=== PATIENT | female | born 1985 | race Caucasian/White ===

== ENCOUNTER 2016-09-18 | Emergency (ER) | payer OTHER ==
[2016-09-18 00:48] LABS: Urine Bacteria Absent (Absent); Urine Bilirubin Negative (Negative); Urine Glucose 2+(150 mg/dL) (Negative); Urine Nitrite Negative (Negative)
[2016-09-18] MEDS ORDERED: Ketorolac INJ* 30 MG/ML 1 ML VIAL IV ONE (01:09)
[2016-09-18] MEDS ORDERED: NS 0.9% 1000 ML* 1,000 ML IV ONE (01:09)
[2016-09-18] MEDS ORDERED: Ondansetron INJ* 2 MG/ML VIAL IV ONE (01:09)
[2016-09-18 01:38] LABS: Manual Entry Verification CAR0052; UR Preg Internal Control QC Line Present; UR Preg Kit Lot# 6030156
--- NOTE | 2016-09-18 01:45 | ED ---
GI/ HPI - HPI Summary HPI Summary: 30 female presents with complaints of blood in urine, burning and urgency that began approximately 2 hours prior to arrival, suddenly. Patient has never had these symptoms before. Has had previous UTI infections. Denies vaginal discharge or complaints. Normal bowel movements without blood, diarrhea and constipation. States she thinks this is a bladder or kidney infection. States she has had lower abdominal discomfort that began also 2 hours ago that she describes as cramping and movement makes it feel better. Admits to lower right back pain that has been dull and ongoing over the past 2 days. Patient denies known fever/chills. She admits to nausea and feeling sweaty, however relates it to feeling as though she is working herself up. No PMHx. No surgeries. Same sex partner. Denies and vomiting. - History of Current Complaint Chief Complaint: EDUrogenitalProblems Stated Complaint: BLOOD IN URINE Hx Obtained From: Patient Onset/Duration: Started Hours Ago - 2, Still Present, Worse Since Timing: Constant Severity: Moderate Current Severity: Moderate Vaginal Bleeding Description: Bright Red Pain Intensity: 8 Location of Pain: Suprapubic Pain Characteristics: Sharp, Cramping, Aching, Unable to describe Associated Signs and Symptoms: Positive: Nausea, Hematuria, Dysuria, Flank Pain , Chills, UTI Symptoms. Negative: Vomiting, Constipation, Blood w/Stool, Diarrhea, Fever, Dyspureunia, New Sexual Partner Additional Signs & Symptoms: Positive: Menses Regular. Negative: Vaginal Bleeding, Vaginal Discharge, Positive Test Aggravating Factor(s): Urination Alleviating Factor(s): Movement - Allergy/Home Medications Allergies/Adverse Reactions: Allergies Allergy/AdvReac Type Severity Reaction Status Date / Time No Known Allergies Allergy Verified 09/18/16 01:48 PMH/Surg Hx/FS Hx/Imm Hx Endocrine/Hematology History: Reports: Hx Anemia Denies: Hx Diabetes Respiratory History: Denies: Hx Asthma - Surgical History Surgery Procedure, Year, and Place: none - Immunization History Immunizations Up to Date: Yes Infectious Disease History: Denies: Traveled Outside the [place] in Last 30 Days - Family History Known Family History: Positive: None - Social History Alcohol Use: Daily Substance Use Type: Reports: None Smoking Status (MU): Never Smoked Tobacco Review of Systems Positive: Chills Cardiovascular: Negative Respiratory: Negative Positive: Abdominal Pain - suprapubic, Nausea Positive: burning, frequency, flank pain, hematuria, urgency Musculoskeletal: Negative Skin: Negative Neurological: Negative All Other Systems Reviewed And Are Negative: Yes Physical Exam Triage Information Reviewed: Yes Vital Signs On Initial Exam: Initial Vitals Temp Pulse Resp BP Pulse Ox 98 F 110 22 127/79 100 09/18/16 00:05 09/18/16 00:05 09/18/16 00:05 09/18/16 00:05 09/18/16 00:05 tachycardia noted. patient is anxious and in moderate amount of pain, unable to sit still. Vital Signs Reviewed: Yes Appearance: Positive: Well-Appearing, Pain Distress - moderate, squirming around stretcher, unable to sit still. Skin: Positive: Warm, Skin Color Reflects Adequate Perfusion, Dry Head/Face: Positive: Normal Head/Face Inspection Eyes: Positive: Normal, Conjunctiva Clear ENT: Positive: Normal ENT inspection, Hearing grossly normal Neck: Positive: Supple, Nontender Respiratory/Lung Sounds: Positive: Clear to Auscultation, Breath Sounds Present Cardiovascular: Positive: Normal, RRR, Pulses are Symmetrical in both Upper and Lower Extremities Abdomen Description: Positive: No Organomegaly, Soft, CVA Tenderness (R), Guarding, Other: - discomfort when palpatiing lower suprapubic abdomen over bladder. Negative: Bruit, CVA Tenderness (L), Distended, McBurney's Point Tenderness - negative rovsings, psoas and rebound, Pulsatile Mass Bowel Sounds: Positive: Present Pelvic Exam: Positive: external exam normal - per patient, deferred. Negative: active bleeding, discharge Musculoskeletal: Positive: Normal, Strength/ROM Intact Neurological: Positive: Normal, Sensory/Motor Intact, Alert, Oriented to Person Place, Time Psychiatric: Positive: Normal Diagnostics - Vital Signs Vital Signs Temp Pulse Resp BP Pulse Ox 09/18/16 00:41 97.3 F 90 18 135/79 98 09/18/16 00:38 97.3 F 101 18 135/79 97 09/18/16 00:05 98 F 110 22 127/79 100 - Laboratory Lab Results: Lab Results 09/18/16 Range/Units 00:10 Urine Color Red A Urine Appearance Cloudy Urine pH 8.0 (5-9) Ur Specific [place] 1.016 (1.010-1.030) Urine Protein 3+(>=500 mg/dl) H (Negative) Urine Ketones Negative (Negative) Urine Blood 2+ H (Negative) Urine Nitrate Negative (Negative) Urine Bilirubin Negative (Negative) Urine Urobilinogen Negative (Negative) Ur Leukocyte Esterase Negative (Negative) Urine WBC (Auto) 1+(6-10/hpf) H (Absent) Urine RBC (Auto) 3+(>10/hpf) H (Absent) Urine Bacteria Absent (Absent) Urine Glucose 2+(150 mg/dl) H (Negative) Urine Test Negative (Negative) Result Diagrams: 09/18/16 02:00 09/18/16 02:00 Lab Statement: Any lab studies that have been ordered have been reviewed, and results considered in the medical decision making process. - CT abdomne/pelvis CT Interpretation: Positive (See Comments) - severe cystitis CT Interpretation Completed By: Radiologist Re-Evaluation - Re-Evaluation First Eval Re-Evaluation Time: 02:30 Change: Improved - patient had some relief after toradol, still uncomfortable GIGU Course/Dx - Course Course Of Treatment: labs, u/a, and CT obtained. given toradol and fluids. due to complaints of nausea patient given some zofran. Significant blood in urine, however no significant sign of infection/bacteria in dip, will send out for culture. CT was obtained to rule out kidney stones due to CVA tenderness, and complaints of vague flank pain. Negative for lithiasis however showed severe cystitis. Labs showed slight WBC elevation. Given bactrim and pyridium while in ED. Continue antibiotic outpatient. Follow up with pcp within 5-7 days. Aware of worsening signs and symptoms to watch out for and return if occur. - Diagnoses Differential Diagnoses - Female: Cystitis, , Pyelonephritis, Renal Calculi, Urinary Tract Infection, Ureteral Calculi Provider Diagnoses: Cystitis - Physician Notifications Discussed Care Of Patient With: Dr Vital Discharge - Discharge Plan Condition: Stable Disposition: HOME Prescriptions: Phenazopyridine TAB* [Pyridium 100 mg TAB*] 200 mdi PO TID #12 tab Sulfamethox/Trimethoprim DS* [Bactrim DS 800/160 TAB*] 1 tab PO BID #13 tab Patient Education Materials: Urinary Tract Infection in Women (ED) Referrals: Joana Talamantes NP [Primary Care Provider] - Additional Instructions: Take prescribed antibiotic as directed until entire dose is finished even if symptoms improve. Take Pyridium to help with pain and discomfort, this may make your urine change to a red/orange color. Take ibuprofen as needed for pain. Drink plenty of fluids. Follow up with PCP. If you develop worsening signs and symptoms or symptoms do not seem to be improving please return.
[2016-09-18 02:20] LABS: Hematocrit 45 % (35-47); Mean Corpuscular HGB Conc 33 g/dl (31-36); Mean Corpuscular Hemoglobin 30 pg (27-31); Mean Corpuscular Volume 91 fL (80-97); Mean Platelet Volume 9 um3 (7.4-10.4); Red Blood Count 4.94 10^6/ul (4.0-5.4); Red Cell Distribution Width 14 % (10.5-15)
[2016-09-18] MEDS ORDERED: Ciprofloxacin 400MG IVPREMIX(* 400 MG/200 ML BAG IVPB ONE (02:27)
[2016-09-18] MEDS ORDERED: Phenazopyridine TAB* 100 MG PO ONE (02:30)
[2016-09-18 02:33] LABS: ALT 10 U/L (7-52); AST 18 U/L (13-39); Albumin 4.2 g/dL (3.2-5.2); Alkaline Phosphatase 57 U/L (34-104); Anion Gap 8 mmol/L (2-11); BUN/Creatinine Ratio 11.6 (8-20); Blood Urea Nitrogen 10 mg/dL (6-24); CO2 Carbon Dioxide 23 mmol/L (22-32); Calcium 8.9 mg/dL (8.6-10.3); Chloride 102 mmol/L (101-111); EGFR Non-African American 78.6 (>60); Globulin 4.2 g/dL (2-4); Glucose 109 mg/dL (70-100); Potassium 3.7 mmol/L (3.5-5.0); Sodium 133 mmol/L (133-145); Total Protein 8.4 g/dL (6.4-8.9)
[2016-09-18] MEDS ORDERED: Sulfamethox/Trimethoprim DS 800/160* TAB PO ONE (02:37)
[2016-09-18 02:49] VITALS: BP 118/69
--- NOTE | 2016-09-18 07:52 | RAD ---
CLINICAL HISTORY: Hematuria and pelvic pain COMPARISON: None TECHNIQUE: Noncontrast CT examination of the abdomen and pelvis from the lung bases through the initial tuberosities. FINDINGS: VISUALIZED LUNG BASES: The visualized lung bases are grossly clear. There is no pleural effusion. ABDOMEN AND PELVIS: Evaluation of the solid organs and vasculature is limited without intravenous contrast. The liver, spleen, pancreas and adrenal glands are grossly normal in appearance. The gallbladder is normal. There is mild fullness of the bilateral renal collecting systems without nano hydronephrosis. There are no renal calculi identified. The urinary bladder exhibits circumferential wall thickening measuring approximately 1.2 cm in thickness. There is free fluid and mesenteric fat stranding surrounding the urinary bladder. The small and large bowel are not distended.The patient's normal appendix is identified in the right lower quadrant (sagittal image 43). There is no gross retroperitoneal or mesenteric lymphadenopathy. The pelvic viscera is normal in appearance. The patient's intrauterine device is appropriately positioned according to CT criteria. The abdominal aorta and iliac arteries are normal in course and diameter. There are no sinister bone lesions. IMPRESSION: CT findings are compatible with severe cystitis.
== END 2016-09-18 02:58 | disposition home or self-care (01) ==
LOC: ED
DX: N30.90 Cystitis, unspecified without hematuria (principal); R10.9 Unspecified abdominal pain; R11.0 Nausea; R31.9 Hematuria, unspecified; R10.84 Generalized abdominal pain
CPT/HCPCS: 36415; 74176; 80053; 81003; 81015; 81025; 83605; 84702; 85025; 96374; 96375; 99282; A9270-GY; J0744; J1885; J2405

== ENCOUNTER 2017-05-09 10:11 | Emergency (ER) | payer OTHER | END 2017-05-09 12:31 | disposition left against medical advice (07) | LOC: UCEAST 10:11 | DX: M54.5 Low back pain (principal); R50.9 Fever, unspecified; Z53.21 Procedure and treatment not carried out due to patient leaving prior to being seen by health care provider ==